=== PATIENT | female | born 1995 | race Hispanic/Latino ===

== ENCOUNTER 2019-03-20 09:26 | Outpatient (CLI) | payer OTHER ==
--- NOTE | 2019-03-20 11:01 | ULT ---
Obstetrical ultrasound: 03/20/2019 COMPARISON: None HISTORY: 24-year-old female, evaluate anatomy TECHNIQUE: Multiplanar grayscale sonographic imaging of the gravid uterus obtained. FINDINGS: Cervical length is approximately 4 cm. Single intrauterine gestation present demonstrating a vertex presentation. Placenta located in the an terior fundus, demonstrating no evidence for previa or abruption. stomach, four-chamber heart view, urinary bladder, umbilical cord insertion, kidneys, spine and intracranial contents appear unremarkable. nose and lips appear grossly unremarkable. Three-vessel cord noted. heart rate is 149 bpm. Amniotic fluid index is 16.3 cm. biometry: Biparietal diameter 4.6 cm 20 weeks 0 days Head circumference 17.1 cm 19 weeks 5 days Abdominal circumference 14.5 cm 19 weeks 6 days Femur length 3.3 cm 20 weeks 3 days Average age based on ultrasound is 20 weeks 0 days. Estimated weight is 328 g +/- 48 g Estimated date of delivery is 08/07/2019 IMPRESSION: Intrauterine gestation as detailed above.
== END 2019-03-20 09:27 | disposition home or self-care (01) ==
LOC: BICULT 09:26
PROVIDERS: ATTEND Family Medicine
DX: O09.92 Supervision of high risk pregnancy, unspecified, second trimester (principal)
CPT/HCPCS: 76805

== ENCOUNTER 2019-05-31 13:50 | Emergency (ER) | payer OTHER | END 2019-05-31 14:40 | disposition home or self-care (01) | LOC: ERS 13:50 | DX: O99.513 Diseases of the respiratory system complicating pregnancy, third trimester (principal); J11.1 Influenza due to unidentified influenza virus with other respiratory manifestations; Z3A.30 30 weeks gestation of pregnancy | CPT/HCPCS: 99283 ==

== ENCOUNTER 2019-07-23 21:40 | Day surgery (SDC) | payer OTHER ==
[2019-07-23 22:15] VITALS: BMI 37.1
[2019-07-23 22:16] VITALS: BP 106/66; TEMP 98.3
[2019-07-23] MEDS ORDERED: hydrALAZINE 20 MG/ML VIAL SLOW IVP PRN (23:03)
--- NOTE | 2019-07-23 23:55 | PRG ---
DATE OF SERVICE: 07/23/2019 PRIMARY OB: Graham Emanuel MD CHIEF COMPLAINT: Abdominal pains. HISTORY OF PRESENT ILLNESS: The patient is a 24-year-old G6, P3 female with an intrauterine at 38 weeks and a day, presenting to Labor and Delivery with uterine contractions that she has been feeling about every 20 to 30 minutes. She reports that she came to be evaluated because they were stronger than they had been in the past. She denies any vaginal bleeding. She does say she is starting to have some mucusy show. She denies any fever, fall, cough, headache, chest pain, shortness of breath, nausea, vomiting, or diarrhea. She has had some constipation. Denies any new rashes, hip problems, knee problems, muscle weakness. Denies vaginal bleeding, urinary urgency, or change in discharge. PAST MEDICAL HISTORY: Negative. PAST SURGICAL HISTORY: She has had 1 prior for previa. ALLERGIES: NO KNOWN DRUG ALLERGIES. MEDICATIONS: vitamins. OB LABS: Unavailable at time of dictation. REVIEW OF SYSTEMS: Per HPI. PHYSICAL EXAMINATION: VITAL SIGNS: Blood pressure 106/66, heart rate of 75, respiratory rate of 18, saturating 98% on room air, and temperature 98.3. GENERAL: She appears to be in no acute distress. She is alert, oriented, cooperative, and pleasant to interact with. HEENT: Head is normocephalic and atraumatic. LUNGS: Clear to auscultation bilaterally. HEART: Has regular rate and rhythm. ABDOMEN: Gravid, soft, nontender. EXTREMITIES: Nontender and nonedematous. CERVICAL: She has 150, -3 station per nursing staff. heart tracing shows fetus with a baseline in the 140s with moderate long-term variability, positive 15 x 15 accelerations, no decelerations. Tocometer shows one contraction during her stay for approximately 40 minutes. ASSESSMENT AND PLAN: The patient is a 24-year-old multiparous female with an intrauterine at 38 weeks and a day, presenting with uterine contractions. She has no evidence of active labor at this time. Fetus has a category 1 tracing and reactive NST. She is being discharged home with term labor precautions. She is scheduled for repeat next Sunday. Job ID: [id number]
== END 2019-07-23 23:05 | disposition home health service (06) ==
LOC: L&D/OP 21:40
PROVIDERS: ATTEND Family Medicine
DX: O47.1 False labor at or after 37 completed weeks of gestation (principal); O34.219 Maternal care for unspecified type scar from previous cesarean delivery; Z3A.38 38 weeks gestation of pregnancy
CPT/HCPCS: 99282

== ENCOUNTER 2019-07-29 09:37 | Inpatient (IN) | payer OTHER ==
[2019-07-29] MEDS ORDERED: Bicitra 30 ML UDCUP PO SCH (09:48)
[2019-07-29] MEDS ORDERED: hydrALAZINE 20 MG/ML VIAL SLOW IVP PRN ×2 (09:48→14:17)
[2019-07-29] MEDS ORDERED: CEFAZOLIN 3 GM in Premix Bag 1 BAG IVPB SCH (09:48)
[2019-07-29] MEDS ORDERED: Ondansetron PF 4 MG/2 ML Vial IVP PRN ×3 (09:48→14:17)
[2019-07-29] MEDS ORDERED: Lactated Ringer's 1,000 ML IV SCH (09:48)
[2019-07-29] MEDS ORDERED: Promethazine HCl 25 MG/ML VIAL IM PRN ×3 (09:48→14:17)
[2019-07-29] MEDS ORDERED: CEFAZOLIN 3 GM in Sodium Chloride 0.9% 100 ML IVPB SCH (10:15)
[2019-07-29 10:28] LABS: Mean Corpuscular HGB CONC 35.1 g/dL (32.0-36.0); Mean Corpuscular Hemoglobin 30.3 pg (27.0-31.0); Mean Corpuscular Volume 86.5 fL (78.0-98.0); Mean Platelet Volume 7.3 fL (7.4-10.4); Platelet Count 280 thou/uL (130-400); RBC Distribution Width 13.1 % (11.5-14.5); White Blood Cell (WBC) Count 9.5 thou/uL (4.8-10.8)
[2019-07-29 10:40] VITALS: BMI 37.1
[2019-07-29] MEDS ORDERED: Bicitra 30 ML UDCUP ONE (11:04)
[2019-07-29 11:10] LABS: HBSAg Index 0.23 S/CO (0-0.99); Hep B Surf Ag Non-Reactive S/CO (NonReactive); Syphilis Antibody Nonreactive (Nonreactive); Syphilis Antibody Index 0.07 S/CO (<1.00 Non-Reactive)
[2019-07-29] MEDS ORDERED: PHENYLEPHRINE-NS 100 MCG/ML 10 ML SYRINGE ONE (11:52)
[2019-07-29] MEDS ORDERED: Oxytocin 10 UNITS/ML VIAL ONE (11:52)
[2019-07-29] MEDS ORDERED: MORPHINE 5 MG/10 ML PF VIAL ONE (11:52)
[2019-07-29] MEDS ORDERED: Ondansetron PF 4 MG/2 ML Vial ONE (11:52)
[2019-07-29] MEDS ORDERED: EPHEDRINE 25 MG/5 ML SYRINGE ONE (11:52)
[2019-07-29] MEDS ORDERED: Glycopyrrolate 0.2 MG/ML 5 ML SYRINGE ONE (12:12)
[2019-07-29] MEDS ORDERED: Promethazine HCl 25 MG SUPP PR PRN (12:51)
[2019-07-29] MEDS ORDERED: diphenhydrAMINE 50 MG/ML VIAL IVP PRN (12:51)
[2019-07-29] MEDS ORDERED: Naloxone HCl 0.4 mg/ml Vial IV PRN (12:51)
[2019-07-29] MEDS ORDERED: Ketorolac Tromethamine 30 MG/ML VIAL IVP PRN (12:51)
[2019-07-29] MEDS ORDERED: Meperidine HCl/PF 25 MG/ML VIAL SLOW IVP PRN (12:51)
[2019-07-29] MEDS ORDERED: Naloxone HCl 0.4 mg/ml Vial IVP PRN ×2 (12:51)
[2019-07-29] MEDS ORDERED: L&D-Morphine 4 MG/ML VIAL SLOW IVP PRN (12:51)
[2019-07-29] MEDS ORDERED: HYDROmorphone 2 MG/ML VIAL SLOW IVP PRN (12:51)
[2019-07-29] MEDS ORDERED: Ondansetron HCl/PF 4 MG/2 ML Vial IVP PRN (12:51)
[2019-07-29] MEDS ORDERED: Communication Order-Pharmacy FS SCH (13:00)
[2019-07-29] MEDS ORDERED: Ketorolac Tromethamine 30 MG/ML VIAL IVP SCH ×2 (13:00→18:00)
[2019-07-29] MEDS ORDERED: Ketorolac Tromethamine 30 MG/ML VIAL ONE (13:52)
[2019-07-29] MEDS ORDERED: NS / Oxytocin 40 units/1000ml 1,000 ML IV SCH (14:17)
[2019-07-29] MEDS ORDERED: Simethicone Chewable 80 MG TAB PO PRN (14:17)
[2019-07-29] MEDS ORDERED: Meperidine HCl/PF 25 MG/ML VIAL IM PRN (14:17)
[2019-07-29] MEDS ORDERED: Bisacodyl 10 MG SUPP PR PRN (14:17)
[2019-07-29] MEDS ORDERED: Lanolin Ointment 7 GM TUBE TOP PRN (14:17)
[2019-07-29] MEDS: Ketorolac Tromethamine 30 MG/ML VIAL IVP SCH (20:54)
[2019-07-29] MEDS: Docusate Calcium (SURFAK) 240 MG CAP PO SCH (20:55)
[2019-07-29] MEDS: Ferrous Sulfate 325 MG TAB PO SCH (21:57)
[2019-07-30] MEDS: Ketorolac Tromethamine 30 MG/ML VIAL IVP SCH ×2 (03:22→07:43)
[2019-07-30 06:28] LABS: Hemoglobin 10.7 g/dL (12.0-16.0); Mean Corpuscular HGB CONC 35.1 g/dL (32.0-36.0); Mean Corpuscular Hemoglobin 30.7 pg (27.0-31.0); Mean Corpuscular Volume 87.5 fL (78.0-98.0); Mean Platelet Volume 7.2 fL (7.4-10.4); Platelet Count 232 thou/uL (130-400); RBC Distribution Width 13.2 % (11.5-14.5); Red Blood Cell (RBC) Count 3.48 mill/uL (4.20-5.40); White Blood Cell (WBC) Count 12.4 thou/uL (4.8-10.8)
[2019-07-30] MEDS: Prenatal Vitamin 1 TAB PO SCH (07:44)
[2019-07-30] MEDS: Docusate Calcium (SURFAK) 240 MG CAP PO SCH ×2 (07:44→21:45)
--- NOTE | 2019-07-30 08:01 | DN ---
DATE OF PROCEDURE: 07/29/2019 TURN OUT WORKER: Hermes Lara MD, PGY-3. PROCEDURE PERFORMED: Repeat low transverse section. PREOPERATIVE DIAGNOSES: 1. Term intrauterine . 2. Previous section. POSTOPERATIVE DIAGNOSIS: Term intrauterine . ANESTHESIA: Spinal. INDICATIONS: This patient is a 24-year-old, G6, P3-0-2-3 female at 39 weeks gestation, who presents for a repeat scheduled . DESCRIPTION OF PROCEDURE: After risks, benefits, and alternatives were explained to the patient, she gave informed consent. Preoperative antibiotics included cefazolin 3 g IV. The patient was taken to the operating room and spinal anesthesia was initiated. She was placed in the supine position with the left tilt and prepped and draped in the usual sterile fashion. A Pfannenstiel incision was made with scalpel, carried down to the level of the fascia, which was sharply nicked. Fascial cut was extended bilaterally with Mike scissors. Inferior and superior edges of the fascial cut edges were elevated with Jes clamps and underlying rectus muscles were sharply and bluntly dissected free. The recti were divided digitally and retracted manually. The peritoneum was entered bluntly and retracted manually. Bladder blade was placed. A low transverse score was made with a scalpel and the uterus was entered in the midline with the scalpel. Clear fluid was seen. The hysterotomy was extended manually. was noted to be vertex and was easily delivered by fundal pressure. Mouth and nares were bulb suctioned. Cord clamped and cut and grossly normal female was handed to waiting nurse. Cord blood was obtained. Placenta was manually extracted, found to be intact with 3-vessel cord and discarded. Uterus was externalized and the endometrium was curetted with dry lap. The bladder blade was replaced and the uterus was closed with a running locking 0 [address] suture[address] We did place a couple of 0 Vicryl [id number] sutures as well. Following this, hemostasis was noted. The abdomen was irrigated with saline and suctioned free of clots. The uterus was internalized and hysterotomy was again noted to be hemostatic. The peritoneum was then closed with a 3-0 chromic suture. The fascia was then closed with a running nonlocking 0 Vicryl suture. The subcu tissue was irrigated and there were no bleeders. The subcu was then closed with 3 interrupted chromic sutures. The skin was approximated with patrica and a wound VAC dressing was placed. All counts were correct. The patient tolerated the procedure well and was taken to recovery room in stable condition. QBL: 530. COMPLICATIONS: None. SPECIMENS: Cord blood sent to lab for blood type. FINDINGS: Grossly normal female infant with Apgars of 8 and 9. Grossly normal placenta with 3-vessel cord, discarded. DRAINS: Parish to gravity, draining clear urine. Job ID: [id number] [facility]
[2019-07-30] MEDS ORDERED: Adacel (T-DAP) 0.5 ML SYRINGE IM ONE (09:00)
[2019-07-30] MEDS: Ferrous Sulfate 325 MG TAB PO SCH ×2 (10:11→21:44)
[2019-07-30] MEDS: diphenhydrAMINE 25 MG CAP PO PRN ×2 (10:38→15:08)
[2019-07-30] MEDS: HYDROcodone/Acetaminophen 5/325 mg Tablet PO PRN ×3 (10:40→21:45)
[2019-07-30] MEDS: Ibuprofen 800 MG TAB PO SCH ×2 (13:24→21:47)
[2019-07-31] MEDS: HYDROcodone/Acetaminophen 5/325 mg Tablet PO PRN ×4 (01:09→21:03)
[2019-07-31] MEDS: diphenhydrAMINE 25 MG CAP PO PRN ×2 (01:10→14:08)
[2019-07-31] MEDS: Ibuprofen 800 MG TAB PO SCH ×3 (07:22→21:03)
[2019-07-31] MEDS: Docusate Calcium (SURFAK) 240 MG CAP PO SCH ×3 (08:34→21:03)
[2019-07-31] MEDS: Prenatal Vitamin 1 TAB PO SCH (08:35)
[2019-07-31] MEDS: Ferrous Sulfate 325 MG TAB PO SCH ×2 (08:35→21:04)
[2019-08-01] MEDS: HYDROcodone/Acetaminophen 5/325 mg Tablet PO PRN ×4 (01:20→16:34)
[2019-08-01] MEDS: Ibuprofen 800 MG TAB PO SCH ×2 (06:19→14:31)
[2019-08-01] MEDS: Docusate Calcium (SURFAK) 240 MG CAP PO SCH (07:56)
[2019-08-01] MEDS: Prenatal Vitamin 1 TAB PO SCH (07:56)
[2019-08-01 08:03] VITALS: BP 102/64; TEMP 97.9
[2019-08-01] MEDS: Ferrous Sulfate 325 MG TAB PO SCH (08:06)
== END 2019-08-01 17:30 | disposition home or self-care (01) | DRG 788 ==
LOC: L&D 09:37 → 3SE 14:31
PROVIDERS: ADMIT Family Medicine; ATTEND Family Medicine
PROC: 10D00Z1 Extraction of Products of Conception, Low, Open Approach (ICD-10-PCS; principal; 2019-07-29)
DX: O34.211 Maternal care for low transverse scar from previous cesarean delivery (principal); Z3A.39 39 weeks gestation of pregnancy; Z37.0 Single live birth
CPT/HCPCS: 36415; 51702; 85027; 86780; 86850; 86900; 86901; 87340; J0690; J1885; J2274; J2405; J2590; Q0163

== ENCOUNTER 2022-01-19 13:10 | Emergency (ER) | payer OTHER ==
[~2022-01-19 13:10] MED LIST: Iopamidol-370 76% 500 ML 1 ML ONE
[2022-01-19] MEDS ORDERED: diphenhydrAMINE 50 MG/ML VIAL ONE (14:34)
[2022-01-19] MEDS ORDERED: Metoclopramide HCl 10 MG/2 ML VIAL ONE (14:35)
[2022-01-19] MEDS ORDERED: Ketorolac Tromethamine 30 MG/ML VIAL ONE (14:35)
[2022-01-19] MEDS ORDERED: Metoclopramide 10 MG/10 ML UDCUP ONE (14:35)
[2022-01-19 14:58] LABS: BHCG - Serum Negative (NEGATIVE); Pregs Control Background? CLEAR/WHITE (CLR/WHITE); Pregs Control Bar Appear? YES (CONTROL BAR)
[2022-01-19 15:07] LABS: ALT (SGPT) 11 U/L (8-55); AST (SGOT) 14 U/L (5-34); Albumin 4.7 g/dL (3.5-5.0); Alkaline Phosphatase 85 U/L (40-110); Anion Gap 15 mmol/L (10-20); BUN (Urea Nitrogen) 11 mg/dL (7.0-18.7); Bilirubin, Total 0.7 mg/dL (0.2-1.2); Calc. Creatinine Clearance 0 mL/min (70-130); Calcium 9.7 mg/dL (7.8-10.44); Carbon Dioxide 27 mmol/L (22-29); Chloride 102 mmol/L (98-107); Estimated GFR 120; Globulin 3.6 g/dL (2.4-3.5); Glucose 87 mg/dL (70-105); Potassium 4.3 mmol/L (3.5-5.1); Protein, Total 8.3 g/dL (6.0-8.3); Sodium 140 mmol/L (136-145)
[2022-01-19 15:09] LABS: #Basophils 0.1 thou/uL (0.0-0.2); #Eosinphils 0.1 thou/uL (0.0-0.7); #Monocytes 0.6 thou/uL (0.11-0.59); #Neutrophils 5.8 thou/uL (1.40-6.50); %Basophils 0.6 % (0.0-1.0); %Lymphocytes 31.3 % (21.0-51.0); %Monocytes 6.4 % (0.0-10.0); %Neutrophils 60.6 % (42.0-75.0); Hemoglobin 16.2 g/dL (12.0-16.0); Mean Corpuscular HGB CONC 34.4 g/dL (32.0-36.0); Mean Corpuscular Volume 93.2 fL (78.0-98.0); Platelet Count 379 thou/uL (130-400); RBC Distribution Width 11.2 % (11.5-14.5); Red Blood Cell (RBC) Count 5.05 mill/uL (4.20-5.40); White Blood Cell (WBC) Count 9.5 thou/uL (4.8-10.8)
== END 2022-01-19 17:40 | disposition home or self-care (01) ==
LOC: ERS 13:10
DX: J32.9 Chronic sinusitis, unspecified (principal); K11.8 Other diseases of salivary glands; Z20.822 Contact with and (suspected) exposure to COVID-19
CPT/HCPCS: 70450; 70491; 80053; 84703; 85025; 96374; 96375; J1200; J1885; J2765; Q9967; U0003; U0005

== ENCOUNTER 2022-11-27 20:56 | Emergency (ER) | payer OTHER ==
[2022-11-27 21:29] LABS: #Basophils 0.1 thou/uL (0.0-0.2); #Eosinphils 0.1 thou/uL (0.0-0.7); #Monocytes 0.7 thou/uL (0.11-0.59); #Neutrophils 5.3 thou/uL (1.40-6.50); %Basophils 0.6 % (0.0-1.0); %Eosinophils 0.9 % (0.0-10.0); %Lymphocytes 35.2 % (21.0-51.0); %Monocytes 7.5 % (0.0-10.0); %Neutrophils 55.6 % (42.0-75.0); Hemoglobin 14.5 g/dL (12.0-16.0); Mean Corpuscular HGB CONC 34.9 g/dL (32.0-36.0); Mean Corpuscular Hemoglobin 31.9 pg (27.0-31.0); Mean Corpuscular Volume 91.6 fl (78.0-98.0); Mean Platelet Volume 9.3 fL (7.4-10.4); Platelet Count 293 10x3/uL (130-400); RBC Distribution Width 12.3 % (11.5-14.5); Red Blood Cell (RBC) Count 4.54 mill/uL (4.20-5.40); White Blood Cell (WBC) Count 9.6 10x3/uL (4.8-10.8)
[2022-11-27 21:54] LABS: ALT (SGPT) 19 U/L (8-55); AST (SGOT) 16 U/L (5-34); Albumin 4.3 g/dL (3.5-5.0); Alkaline Phosphatase 78 U/L (40-110); Anion Gap 12 mmol/L (10-20); BUN (Urea Nitrogen) 11 mg/dL (7.0-18.7); Bilirubin, Total 0.4 mg/dL (0.2-1.2); Calc. Creatinine Clearance 0 mL/min (70-130); Calcium 9.4 mg/dL (7.8-10.44); Carbon Dioxide 24 mmol/L (22-29); Chloride 106 mmol/L (98-107); Estimated GFR 109; Globulin 3.3 g/dL (2.4-3.5); Glucose 109 mg/dL (70-105); Potassium 3.4 mmol/L (3.5-5.1); Protein, Total 7.6 g/dL (6.0-8.3); Sodium 139 mmol/L (136-145)
[2022-11-27 22:05] LABS: BHCG - Serum Negative (NEGATIVE); Pregs Control Background? CLEAR/WHITE (CLR/WHITE); Pregs Control Bar Appear? YES (CONTROL BAR)
[2022-11-28] MEDS ORDERED: Mag-Al 1200 mg/1200 mg/30 ML UDCUP ONE (00:26)
[2022-11-28 02:25] LABS: Bacteria/HPF None Seen HPF (None Seen); Bilirubin Negative (Negative); Blood, Urine Negative (Negative); CAUTI Indications for Culture Dysuria,urgency,freq; Clarity Clear (Clear); Glucose, Urine (Dipstick) Normal (Negative); Ketone, Urine Negative (Negative); Leukocyte 75 Leu/uL (Negative); Nitrite Negative (Negative); Protein, Urine (Dipstick) Negative (Neg-Trace); RBC/HPF 0-3 HPF (0-3); Specific Gravity, Urine 1.024 (1.002-1.036); Urobilinogen Normal mg/dL (Less than 2)
[2022-11-28 02:46] LABS: Urine Culture Reflex No No
[2022-11-28] MEDS ORDERED: Iopamidol 370 76% 100 ML VIAL ONE (10:25)
== END 2022-11-28 03:38 | disposition home or self-care (01) ==
LOC: ERS 20:56
DX: R10.12 Left upper quadrant pain (principal)
CPT/HCPCS: 36415; 74177; 80053; 81001; 83690; 84703; 85025; Q9967